=== PATIENT | male | born 1980 | race Caucasian/White ===

== ENCOUNTER 2016-09-24 08:14 | Emergency (ER) | payer SELFPAY ==
[~2016-09-24] VITALS: Ht 190.5 cm; Wt 90.7 kg
[2016-09-24 08:27] VITALS: BP 132/87
[2016-09-24] MEDS ORDERED: PREDNISONE20 MG ORAL (09:02)
[2016-09-24] MEDS ORDERED: CLINDAMYCIN HC300 MG ORAL (09:02)
[2016-09-24 09:11] VITALS: BP 129/86
--- NOTE | 2016-09-24 09:50 | Emergency Room Report ---
History of Present Illness General Chief Complaint: Earache Source: Patient Present Illness HPI 35YOM walk-in with 2 weeks right ear ache started after swimming in ocean. History of frequent ear infections s/p ear surgery 18 months ago for "dysfunctional eustachian tubes" he has had since childhood Denies fever/chills, ear drainage, pain to outside of ear Been taking ibuprofen 3x a day without improvement Has ENT followup in a few weeks Usually has improvement with steroids and PO clindamycin Allergies: Coded Allergies: No Known Allergies (Unverified , 09/24/16) Patient History Past Medical History: none Past Surgical History: other - Ear surgery Pertinent Family History: none Social History: Denies: alcohol use, drug use, smoking Immunizations: UTD Reviewed Nursing Documentation: PMH: Agreed, PSxH: Agreed Nursing Documentation-PMH Past Medical History: No Stated History Review of Systems All Other Systems: negative except mentioned in HPI Physical Exam Vital Signs Date Time Temp Pulse Resp B/P Pulse Ox O2 Delivery O2 Flow Rate FiO2 09/24/16 08:27 97.9 66 18 132/87 98 Room Air Sp02 EP Interpretation: reviewed, normal General Appearance: normal inspection, well appearing, no apparent distress, alert, GCS 15, non-toxic Head: normocephalic, atraumatic Eyes: bilateral eye EOMI, bilateral eye PERRL ENT: other - Left TM clear, no infection. Right TM, complicated anatomy, post- op; unable to visualize right TM. No effusion. No pinna or mastoid ttp Neck: normal inspection, full range of motion, supple, no bony tend Respiratory: normal inspection, lungs clear, normal breath sounds, no respiratory distress, no retraction, no wheezing Cardiovascular #1: regular rate, rhythm, no edema Gastrointestinal: normal inspection, normal bowel sounds, non tender, soft, no guarding, no hernia Genitourinary: no CVA tenderness Musculoskeletal: normal inspection, back normal, normal range of motion, Trevor' s Sign negative Neurologic: normal inspection, alert, oriented x3, responsive, comber operator III-XII nml as tested, motor strength/tone normal, speech normal Psychiatric: normal inspection, judgement/insight normal, mood/affect normal Skin: normal inspection, normal color, no rash Medical Decision Making Diagnostic Impression: Primary Impression: Earache symptoms in right ear ER Course based on patient's history, recent swimming , will tx empirically with PO clinda and prednisone ENT followup as scheduled DC home Last Vital Signs Date Time Temp Pulse Resp B/P Pulse Ox O2 Delivery O2 Flow Rate FiO2 09/24/16 09:11 97.9 66 18 129/86 98 Room Air Status: improved Disposition: HOME, SELF-CARE Condition: Improved Scripts Prednisone* (PREDNISONE*) 20 Mg Tablet 40 MG ORAL DAILY for 5 Days, #5 TAB Prov: CARIN RDZ M.D. 09/24/16 Clindamycin Hcl (CLINDAMYCIN HCL) 300 Mg Capsule 300 MG ORAL THREE TIMES A DAY for 7 Days, #21 CAP Prov: CARIN RDZ M.D. 09/24/16 Referrals: NOT CHOSEN IPA/,REFERRING (PCP) Patient Instructions: Otitis Media, Adult Additional Instructions: - Take ALL antibiotic - clindamycin - until finished - Take prednisone 40mg daily for 5 days - Follow up with ENT at next appointment CARIN RDZ M.D. Sep 24, 2016 09:50
== END 2016-09-24 09:11 | disposition home or self-care (01) ==
LOC: EMR 08:50
DX: H92.01 Otalgia, right ear (principal)
CPT/HCPCS: 99284